=== PATIENT | female | born 1960 | race Asian ===

== ENCOUNTER 2024-04-15 14:44 | Emergency (ER) | payer OTHER ==
[2024-04-15 15:20] VITALS: BP 176/94; PULSE 83; RESP 20; TEMP 97.4; BMI 27.2
[2024-04-15] MEDS: ACETAMINOPHEN 500 MG TABLET (FP) PO ONE (15:36)
[2024-04-15] MEDS: ACETAMINOPHEN 325 MG TABLET (FP) PO ONE (15:36)
[2024-04-15] MEDS: KETOROLAC TROMETHAMINE 30 MG/1 ML VIAL IM ONE (15:37)
[2024-04-15] MEDS ORDERED: LIDOCAINE 1%/EPI 1:100000 (20 ML MULTI DOSE VIAL) ONE (17:31)
[2024-04-15] MEDS ORDERED: LIDOCAINE HCL 1%, 10 MG/ML (20ML VIAL) ONE (17:33)
[2024-04-15] MEDS ORDERED: LIDOCAINE HCL 2% (20ML MULTI-DOSE VIAL) ONE (17:38)
[2024-04-15] MEDS: LIDOCAINE 2%/EPINEPHRINE 1:100000 (50 ML MD VIAL) INF ONE (17:49)
== END 2024-04-15 20:12 | disposition home or self-care (01) ==
LOC: JER 14:44
PROC: 2W3DX1Z Immobilization of Left Lower Arm using Splint (ICD-10-PCS; principal; 2024-04-15)
DX: S52.502A Unspecified fracture of the lower end of left radius, initial encounter for closed fracture (principal); W01.0XXA Fall on same level from slipping, tripping and stumbling without subsequent striking against object, initial encounter
CPT/HCPCS: 70450-TC; 70486-TC; 72125-TC; 73070-TC-LT-FY; 73090-TC-LT-FY; 73130-TC-LT-FY; 99284-25